=== PATIENT | female | born 1985 | race Hispanic/Latino ===

== ENCOUNTER 2019-05-11 08:41 | Outpatient (CLI) | payer OTHER ==
--- NOTE | 2019-05-11 09:07 | ULT ---
TRANSABDOMINAL PELVIC ULTRASOUND: HISTORY: patient. Pelvic pain. COMPARISON: None. TECHNIQUE: Transabdominal imaging of the pelvis is performed. Ovaries are interrogated with grayscale, color cecilia w, Doppler imaging and spectral waveform analysis FINDINGS: Uterus is identified, without myometrial masses. Uterus measures 5.5 x 9.0 x 10.1 cm. Endometrium: There is a gestational sac, yolk sac and pole. [place]-rump length: 1.3 cm, 7 weeks 4 days. heart tones: 158 bpm. Left ovary: Normal echotexture, measuring 2.4 x 2.3 x 3.1 cm. Right ovary: Normal echotexture measuring 2.5 x 2.0 x 2.9 cm. Free fluid: None. Ovarian Doppler: Vascular flow to the left and right ovary. IMPRESSION: Single intrauterine gestation with heart tones. Gestational age by crown-rump length is 7 weeks 4 days. Transcribed Date/Time: 05/11/2019 9:16 AM
== END 2019-05-11 08:42 | disposition home or self-care (01) ==
LOC: BICULT 08:41
PROVIDERS: ATTEND Nurse Practitioner
DX: O99.89 Other specified diseases and conditions complicating pregnancy, childbirth and the puerperium (principal); R10.2 Pelvic and perineal pain; Z3A.01 Less than 8 weeks gestation of pregnancy
CPT/HCPCS: 76856; 93976

== ENCOUNTER 2019-08-01 10:27 | Outpatient (CLI) | payer OTHER ==
--- NOTE | 2019-08-01 12:34 | ULT ---
OB ULTRASOUND: INDICATION: Assess size and dates with anatomy. FINDINGS: A single viable intrauterine is noted. Gestational age by ultrasound is 19 weeks 3 days. BPD: 19 weeks 3 days. HC: 19 weeks 3 days. AC: 19 weeks 2 days. FL: 19 weeks 1 day. EFW: 277 gm. Placenta: Posterior. Presentation: Breech. heart rate: 147 b.p.m. Cervical length: 5.8 cm. Anatomy: Intracranial contents, 4-chamber heart, stomach, cord insertion, urinary bladder, spine, ex tremities, and 3-vessel cord were all imaged. The kidneys are imaged. There is mild dilatation of both renal pelvises measuring up to 4 mm each. Lips and nose are not well visualized due to position. Amniotic fluid volume appears within normal range. IMPRESSION: 1. A 19-week 3-day gestation by ultrasound. 2. Mild dilatation of both renal pelvises. Followup is recommended. POS: [facility]
== END 2019-08-01 10:28 | disposition home or self-care (01) ==
LOC: BICULT 10:27
PROVIDERS: ATTEND Family Medicine
DX: O09.892 Supervision of other high risk pregnancies, second trimester (principal); Z3A.19 19 weeks gestation of pregnancy
CPT/HCPCS: 76805